=== PATIENT | female | born 1965 | race Caucasian/White ===

== ENCOUNTER 2024-01-30 12:59 | Emergency (ER) | payer BC ==
[~2024-01-30] VITALS: Ht 157.5 cm; Wt 80.4 kg
[2024-01-30 13:04] VITALS: TEMP 97.6
[2024-01-30] MEDS: dexamethasone sod phosphate 10mg/ml inj IM STA (15:17)
[2024-01-30] MEDS: cyclobenzaprine 10mg tablet PO ONE (15:18)
[2024-01-30] MEDS: ketorolac trometh 30MG/ML vial 30 MG/ML VIAL IV ONE (15:18)
[2024-01-30] MEDS ORDERED: CYCL-1 PO (15:27)
[2024-01-30] MEDS ORDERED: LIDO700A32 TOP (15:27)
[2024-01-30 15:35] VITALS: BP 145/86; PULSE 86; RESP 18; O2SAT 98
== END 2024-01-30 15:36 | disposition home or self-care (01) ==
LOC: ER 13:00
DX: M54.12 Radiculopathy, cervical region (principal); M79.601 Pain in right arm; Z88.1 Allergy status to other antibiotic agents; Z88.8 Allergy status to other drugs, medicaments and biological substances
CPT/HCPCS: 96372; 96374; 99284; J1100; J1885